=== PATIENT | female | born 1950 | race Caucasian/White ===

== ENCOUNTER 2016-11-19 19:02 | Inpatient (IN) | payer MEDICARE, MEDICAID ==
[~2016-11-19] VITALS: Ht 157.5 cm; Wt 80.7 kg
[2016-11-19] MEDS ORDERED: ACETAMINOPHEN WITH CODEINE 300/30MG TABLET PO ONE (20:30)
[2016-11-19] MEDS ORDERED: MORPHINE SULFATE 2 MG/ML CPJ (NOT FOR IM USE) IV PRN ×2 (23:30→23:45)
[2016-11-19] MEDS ORDERED: ONDANSETRON HCL 4MG/2ML VIAL IV PRN ×2 (23:30→23:45)
[2016-11-20] MEDS ORDERED: TRAM50TA3 PO (06:33)
[2016-11-20] MEDS ORDERED: RANI150C12 PO (06:33)
[2016-11-20] MEDS: OMEPRAZOLE 20MG CAPSULE EXTENDED RELEASE PO SCH (07:58)
[2016-11-20] MEDS ORDERED: OMEPRAZOLE 20MG CAPSULE EXTENDED RELEASE PO SCH (09:00)
[2016-11-21] MEDS ORDERED: MELO-106 PO (00:02)
[2016-11-21] MEDS ORDERED: TRAMADOL 50MG TABLET PO PRN (00:15)
[2016-11-21] MEDS ORDERED: MORPHINE SULFATE 4 MG/ML CPJ (NOT FOR IM USE) IV PRN (00:45)
[2016-11-21 06:13] LABS: BASOPHILS % 0.4 % (0.0-2.0); EOSINOPHILS % 3.5 % (0.0-5.0); HEMATOCRIT. 36.9 % (36.0-48.0); HEMOGLOBIN. 12.5 g/dL (12.0-16.0); LYMPHOCYTES % 23.3 % (20.0-50.0); MEAN CORPUSCULAR HEMOGLOBIN 30.7 pg (28.0-32.0); MEAN CORPUSCULAR VOLUME 90.5 fL (81.0-99.0); MEAN PLATELET VOLUME 8.9 fl (7.4-10.4); MONOCYTES % 9.5 % (2.0-8.0); NEUTROPHILS % 63.3 % (40.0-76.0); PLATELET 213 x1000/uL (130-400); RED BLOOD CELL COUNT 4.08 mill/uL (4.2-5.4)
[2016-11-21] MEDS: OMEPRAZOLE 20MG CAPSULE EXTENDED RELEASE PO SCH (06:56)
[2016-11-21 07:36] LABS: CARBON DIOXIDE 28 mEq/L (21-32); CHLORIDE 107 mEq/L (98-107)
[2016-11-21] MEDS: MELOXICAM 7.5MG TABLET PO SCH (09:00)
[2016-11-21] MEDS ORDERED: VANCOMYCIN HCL 500 MG/VIAL ONE (11:48)
[2016-11-21] MEDS ORDERED: BACITRACIN ZINC 15GM TUBE TOP ONE (11:48)
[2016-11-21] MEDS ORDERED: FENTANYL CITRATE/PF 50MCG/ML 2ML VIAL ONE (12:44)
[2016-11-21] MEDS ORDERED: MIDAZOLAM HCL 2 MG/2 ML VIAL ONE (12:44)
[2016-11-21] MEDS ORDERED: MEPERIDINE HCL/PF 25MG/ML CPJ IV PRN (13:00)
[2016-11-21] MEDS ORDERED: LABETALOL HCL 20MG/4ML CARPUJECT IV PRN (13:00)
[2016-11-21] MEDS ORDERED: ONDANSETRON HCL 4MG/2ML VIAL IV PRN (13:00)
[2016-11-21] MEDS: HYDROMORPHONE HCL/PF 2MG/ML CPJ IV PRN ×2 (14:20→15:17)
[2016-11-21] MEDS ORDERED: HYDROCODONE/ACETAMINOPHEN 10/325MG TABLET PO PRN (15:00)
[2016-11-21] MEDS: HYDROCODONE/ACETAMINOPHEN 5/325MG TABLET PO PRN ×2 (18:32→23:38)
[2016-11-21] MEDS: CEFAZOLIN 1000MG PREMIX 50 ML IV SCH (18:32)
[2016-11-22] MEDS: CEFAZOLIN 1000MG PREMIX 50 ML IV SCH ×2 (02:00→10:53)
[2016-11-22] MEDS: HYDROCODONE/ACETAMINOPHEN 5/325MG TABLET PO PRN (05:25)
[2016-11-22 06:26] LABS: BASOPHILS % 0.2 % (0.0-2.0); EOSINOPHILS % 0.7 % (0.0-5.0); HEMATOCRIT. 36.8 % (36.0-48.0); HEMOGLOBIN. 12.5 g/dL (12.0-16.0); LYMPHOCYTES % 11.9 % (20.0-50.0); MEAN CORPUSCULAR HEMOGLOBIN 30.6 pg (28.0-32.0); MEAN CORPUSCULAR VOLUME 90.3 fL (81.0-99.0); MEAN PLATELET VOLUME 8.9 fl (7.4-10.4); MONOCYTES % 8.1 % (2.0-8.0); NEUTROPHILS % 79.1 % (40.0-76.0); PLATELET 219 x1000/uL (130-400); RED BLOOD CELL COUNT 4.07 mill/uL (4.2-5.4); RED CELL DISTRIBUTION WIDTH 12.8 % (11.6-14.6)
[2016-11-22 07:50] LABS: CARBON DIOXIDE 24 mEq/L (21-32); CHLORIDE 105 mEq/L (98-107)
[2016-11-22] MEDS: MELOXICAM 7.5MG TABLET PO SCH (08:39)
[2016-11-22] MEDS ORDERED: FAMOTIDINE 20MG TABLET PO SCH (09:00)
[2016-11-22 13:58] VITALS: BP 134/72
== END 2016-11-22 14:35 | disposition home health service (06) | DRG 512 ==
LOC: ER 21:17 → 6EST 21:40 → ENRESERV 22:02 → ER 22:31
PROVIDERS: ADMIT Internal Medicine; ATTEND Internal Medicine
PROC: 0PSJ04Z Reposition Left Radius with Internal Fixation Device, Open Approach (ICD-10-PCS; principal; 2016-11-21)
DX: S52.502A Unspecified fracture of the lower end of left radius, initial encounter for closed fracture (principal); S52.612A Displaced fracture of left ulna styloid process, initial encounter for closed fracture; M19.90 Unspecified osteoarthritis, unspecified site; W01.0XXA Fall on same level from slipping, tripping and stumbling without subsequent striking against object, initial encounter; Z60.2 Problems related to living alone; W19.XXXA Unspecified fall, initial encounter; Y93.89 Activity, other specified; Y99.8 Other external cause status; Y92.009 Unspecified place in unspecified non-institutional (private) residence as the place of occurrence of the external cause; Z90.49 Acquired absence of other specified parts of digestive tract
CPT/HCPCS: 29125; 36415; 73100; 73110; 80048; 85025; 86850; 86900; 97110; 97161; 97166; 99285; A4565; C1713; J0690; J1170; J2250; J2270; J3010; J3370; J7040; J7120

== ENCOUNTER 2016-12-17 20:11 | Emergency (ER) | payer MEDICARE, MEDICAID ==
[~2016-12-17 20:11] MED LIST: MELO-106 PO; RANI150C12 PO; TRAM50TA3 PO
== END 2016-12-17 22:00 | disposition left against medical advice (07) ==
LOC: ER 20:11
DX: R11.2 Nausea with vomiting, unspecified (principal); R50.9 Fever, unspecified; Z53.21 Procedure and treatment not carried out due to patient leaving prior to being seen by health care provider

== ENCOUNTER 2019-05-08 17:15 | Emergency (ER) | payer MEDICARE, MEDICAID ==
[~2019-05-08] VITALS: Ht 154.9 cm; Wt 72.0 kg
[2019-05-08] MEDS ORDERED: ACETAMINOPHEN 325MG TABLET PO STA (17:51)
[2019-05-08 19:39] VITALS: BP 145/75
== END 2019-05-08 19:40 | disposition home or self-care (01) ==
LOC: ER 17:29
DX: S93.401A Sprain of unspecified ligament of right ankle, initial encounter (principal); W50.0XXA Accidental hit or strike by another person, initial encounter; Y93.89 Activity, other specified; Y92.89 Other specified places as the place of occurrence of the external cause; Y99.8 Other external cause status; Z90.49 Acquired absence of other specified parts of digestive tract; Z87.19 Personal history of other diseases of the digestive system; Z79.899 Other long term (current) drug therapy; Z90.89 Acquired absence of other organs
CPT/HCPCS: 73610; 99283